=== PATIENT | male | born 1980 | race Caucasian/White ===

== ENCOUNTER 2023-01-03 15:18 | Inpatient (IN) | payer SELFPAY ==
[~2023-01-03] VITALS: Ht 162 cm; Wt 100.1 kg
--- NOTE | 2023-01-03 15:34 | ED Lower Extremity ---
General Chief Complaint: Lower Extremity Stated Complaint: HBP | BILAT FEET SWELLING Source: patient Exam Limitations: no limitations History of Present Illness Date Seen by Provider: January 03, 2023 Time Seen by Provider: 15:34 Initial Comments Patient is a 42-year-old male who presents to the emergency room with a chief complaint of bilateral lower extremity swelling from the hips to the toes as well as significant sharp foot pain. Patient states this pain started approximately 30 days ago. He also complains of numbness or decreased sensation from his waist line to his lower abdomen. He states these are new concerns over the last month. He denies any loss of bowel or bladder function. No back pain. No abdominal pain. No nausea. No chest pain, pressure, tightness or squeezing. No exertional dyspnea. He denies black or bloody stool, denies dysuria. He is on 2 medications for blood pressure and states that he is compliant with these. He does smoke. No daily alcohol. He states he normally has a blood pressure around 140 systolic. He states his blood pressure went up suddenly today and as noted on triage his systolic is 225. Onset: other (1 month) Severity: moderate Pain/Injury Location: bilateral hip, bilateral leg, bilateral knee, bilateral thigh, bilateral foot Modifying Factors: Worse With Movement Allergies and Home Medications Allergies Coded Allergies: No Known Drug Allergies (Unverified , 01/03/23) Patient Home Medication List Home Medication List Reviewed: Yes Review of Systems Constitutional: see HPI EENTM: no symptoms reported Respiratory: no symptoms reported Cardiovascular: no symptoms reported Gastrointestinal: other (Numbness to anterior abdominal wall at approximately the waistline) Genitourinary: no symptoms reported Musculoskeletal: other (Bilateral lower extremity edema) Psychiatric/Neurological: Numbness All Other Systems Reviewed Negative Unless Noted: Yes Physical Exam Vital Signs Vital Signs - First Documented 01/03/23 15:32 Temp 36.9 Pulse 131 Resp 22 B/P (MAP) 224/145 (171) Pulse Ox 97 O2 Delivery Room Air Capillary Refill : Height, Weight, BMI Height: '" Weight: lbs. oz. kg; BMI Method: General Appearance: WD/WN, no apparent distress, obese HEENT: PERRL/EOMI Progress/Results/Core Measures Results/Orders Lab Results Laboratory Tests Test 01/03/23 15:50 01/03/23 16:32 Range/Units White Blood Count 10.3 4.3-11.0 10^3/uL Red Blood Count 4.06 L 4.30-5.52 10^6/uL Hemoglobin 12.9 L 13.3-17.7 g/dL Hematocrit 39 L 40-54 % Mean Corpuscular Volume 97 80-99 fL Mean Corpuscular Hemoglobin 32 25-34 pg Mean Corpuscular Hemoglobin Concent 33 32-36 g/dL Red Cell Distribution Width 14.3 10.0-14.5 % Platelet Count 364 130-400 10^3/uL Mean Platelet Volume 8.9 L 9.0-12.2 fL Immature Granulocyte % (Auto) 0 % Neutrophils (%) (Auto) 73 42-75 % Lymphocytes (%) (Auto) 18 12-44 % Monocytes (%) (Auto) 6 0-12 % Eosinophils (%) (Auto) 2 0-10 % Basophils (%) (Auto) 1 0-10 % Neutrophils # (Auto) 7.5 1.8-7.8 X 10^3 Lymphocytes # (Auto) 1.8 1.0-4.0 X 10^3 Monocytes # (Auto) 0.6 0.0-1.0 X 10^3 Eosinophils # (Auto) 0.2 0.0-0.3 10^3/uL Basophils # (Auto) 0.1 0.0-0.1 10^3/uL Immature Granulocyte # (Auto) 0.0 0.0-0.1 10^3/uL Prothrombin Time 12.9 12.2-14.7 SEC INR Comment 1.0 0.8-1.4 Activated Partial Thromboplast Time 27 24-35 SEC Sodium Level 143 135-145 MMOL/L Potassium Level 3.9 3.6-5.0 MMOL/L Chloride Level 106 98-107 MMOL/L Carbon Dioxide Level 18 L 21-32 MMOL/L Anion Gap 19 H 5-14 MMOL/L Blood Urea Nitrogen 7 7-18 MG/DL Creatinine 0.82 0.60-1.30 MG/DL Estimat Glomerular Filtration Rate 112 BUN/Creatinine Ratio 9 Glucose Level 136 H 70-105 MG/DL Calcium Level 9.4 8.5-10.1 MG/DL Corrected Calcium 9.1 8.5-10.1 MG/DL Magnesium Level 1.6 1.6-2.4 MG/DL Total Bilirubin 0.5 0.1-1.0 MG/DL Aspartate Amino Transf (AST/SGOT) 181 H 5-34 U/L Alanine Aminotransferase (ALT/SGPT) 137 H 0-55 U/L Alkaline Phosphatase 87 40-136 U/L Myoglobin 20.3 10.0-92.0 NG/ML Troponin I < 0.028 <0.028 NG/ML Total Protein 8.1 6.4-8.2 GM/DL Albumin 4.4 3.2-4.5 GM/DL My Orders Orders - ESTRELLA SÁNCHEZ MD Cbc With Automated Diff (01/03/23 15:47) Magnesium (01/03/23 15:47) Chest 1 View, Ap/Pa Only (01/03/23 15:47) Ekg Tracing (01/03/23 15:47) Comprehensive Metabolic Panel (01/03/23 15:47) Myoglobin Serum (01/03/23 15:47) Protime With Inr (01/03/23 15:47) Partial Thromboplastin Time (01/03/23 15:47) O2 (01/03/23 15:47) Monitor-Rhythm Ecg Trace Only (01/03/23 15:47) Lipid Panel (01/04/23 06:00) Ed Iv/Invasive Line Start (01/03/23 15:47) Troponin I [place] (01/03/23 15:47) Labetalol Injection (Normodyne Injection (01/03/23 16:00) Hydroxyzine Cap/Tab (Vistaril) (01/03/23 16:00) Labetalol Injection (Normodyne Injection (01/03/23 16:30) Ct Abdomen/Pelvis W (01/03/23 16:34) Ns Iv 1000 Ml (Sodium Chloride 0.9%) (01/03/23 16:34) Iohexol Injection (Omnipaque 350 Mg/Ml 1 (01/03/23 16:45) Ns (Ivpb) (Sodium Chloride 0.9% Ivpb Bag (01/03/23 16:45) Thyroid Stimulating Hormone (01/03/23 17:37) Bnp [place] (01/03/23 17:37) Hemoglobin A1c (01/03/23 17:37) Urinalysis (01/03/23 17:37) Drug Screen Stat (Urine) (01/03/23 17:37) Furosemide Injection (Lasix Injection) (01/03/23 17:45) Metoprolol Succinate (Xl) Tab (Toprol Xl (01/03/23 18:00) Ns (Ivpb) (Sodium C... W/Nicardipine Iv (01/03/23 18:00) Medications Given in ED Current Medications Medications Dose Ordered Sig/Ronnell Route Start Time Stop Time Status Last Admin Dose Admin Hydroxyzine Pamoate 25 mg ONCE ONCE PO 01/03/23 16:00 01/03/23 16:01 DC 01/03/23 15:59 25 MG Iohexol 100 ml ONCE ONCE IV 01/03/23 16:45 01/03/23 16:46 DC 01/03/23 17:18 80 ML Labetalol HCl 20 mg ONCE ONCE IV 01/03/23 16:00 01/03/23 16:01 DC 01/03/23 16:00 20 MG Labetalol HCl 20 mg ONCE ONCE IV 01/03/23 16:30 01/03/23 16:35 DC 01/03/23 16:45 20 MG Sodium Chloride 100 ml ONCE ONCE IV 01/03/23 16:45 01/03/23 16:46 DC 01/03/23 17:19 80 ML Vital Signs/I&O 01/03/23 15:32 Temp 36.9 Pulse 131 Resp 22 B/P (MAP) 224/145 (171) Pulse Ox 97 O2 Delivery Room Air Progress Progress Note : Time: 17:50 Progress Note Discussed with eICU Initial ECG Impression Date: January 03, 2023 Initial ECG Impression Time: 16:18 Initial ECG Rate: 103 Initial ECG Rhythm: S.Tach Initial ECG Intervals: Normal Initial ECG Impression: Normal Diagnostic Imaging Diagonstic Imaging: Xray Comments [facility], [place] NAME: NIKO ROBERT [facility] REC#: [id number] PT STATUS: REG ER : 1980 PHYSICIAN: ESTRELLA SÁNCHEZ MD ADMIT DATE: 01/03/23/ER Draft Date of Exam:01/03/23 CHEST 1 VIEW, AP/PA ONLY INDICATION: Chest pain. COMPARISON: None. FINDINGS: Single frontal view of the chest demonstrates normal heart size and pulmonary vascularity. The lungs are well aerated and clear. No large pleural effusion or pneumothorax is seen. The visualized osseous structures show no acute abnormalities. IMPRESSION: No acute cardiopulmonary process. Dictated on workstation # [id number] Dict: 01/03/23 1615 Trans: 01/03/23 1617 [id number] Interpreted by: LASHAUN DORMAN MD Electronically signed by: Diagonstic Imaging: CT Comments [facility], [place] NAME: NIKO ROBERT [facility] REC#: [id number] PT STATUS: REG ER : 1980 PHYSICIAN: ESTRELLA SÁNCHEZ MD ADMIT DATE: 01/03/23/ER Signed Date of Exam:01/03/23 CT ABDOMEN/PELVIS W PROCEDURE: CT abdomen and pelvis with contrast. TECHNIQUE: Multiple contiguous axial images were obtained through the abdomen and pelvis after administration of intravenous contrast. Auto Exposure Controls were utilized during the CT exam to meet ALARA standards for radiation dose reduction. All CT scans use one or more of the following dose optimizing techniques: automated exposure control, MA and/or KvP adjustment based on patient size and exam type or iterative reconstruction. INDICATION: Low abdominal pain. Leg swelling. FINDINGS: The lung bases demonstrate no findings of pneumonia or edema. There is no pleural or pericardial effusion. There is hepatomegaly with mild hepatic steatosis. There is no focal intrahepatic abnormality. The hepatic and portal veins are patent. Gallbladder is nondistended. There are no radiodense stones or findings of biliary dilatation. The pancreas appears normal. The spleen is unremarkable. There is no adrenal mass. The kidneys enhance normally without findings of urolithiasis or obstruction. There is no abnormal perinephric fat stranding. There are no findings of urolithiasis. There is no abnormal small or large bowel dilation to suggest bowel obstruction. The appendix is normal. There is moderate stool within the colon. There are few diverticula but no findings of diverticulitis. The bladder is nondistended. There is no free fluid. There is no free air. There is no adenopathy. There is no abscess. The aorta is normal in caliber. There is no acute osseous abnormality. IMPRESSION: 1. No CT findings of an acute inflammatory or obstructive process in the abdomen or pelvis. 2. Hepatomegaly and mild hepatic steatosis 3. Diverticulosis without diverticulitis. There is no bowel obstruction or appendicitis. 4. No free fluid. Dictated by: Dictated on workstation # [id number] Dict: 01/03/234 Trans: 01/03/231739 [facility] [id number] Interpreted by: PARESH JACKMAN MD Electronically signed by: PARESH JACKMAN MD 01/03/231739 Departure Communication (Admissions) Time/Spoke to Admitting Phy: 17:[address] Jimenez hospitalist Time/Spoke to Consulting Phy: 17:[address] Pride cardiology Impression Primary Impression: Hypertensive urgency Disposition: ADMITTED INPATIENT Condition: Critical Admissions Decision to Admit Reason: Admit from ER (General) Decision to Admit/Date: January 03, 2023 Time/Decision to Admit Time: 17:50 Departure-Patient Inst. Referrals: JOSE CRUZ ELIAS MD (PCP/Family) Primary Care Physician ESTRELLA SÁNCHEZ MD January 03, 2023 15:34
[2023-01-03] MEDS ORDERED: hydrOXYzine (VISTARIL/ATARAX) 25 MG capsule/tablet PO ONE (16:00)
[2023-01-03] MEDS ORDERED: LABETALOL HCL 20 MG/4 ML VIAL IV ONE ×2 (16:00→16:30)
[2023-01-03 16:03] LABS: BASOPHILS # (AUTO) 0.1 10^3/uL (0.0-0.1); BASOPHILS % (AUTO) 1 % (0-10); EOSINOPHILS # (AUTO) 0.2 10^3/uL (0.0-0.3); EOSINOPHILS % (AUTO) 2 % (0-10); HEMATOCRIT 39 % (40-54); HEMOGLOBIN 12.9 g/dL (13.3-17.7); LYMPHOCYTES # (AUTO) 1.8 X 10^3 (1.0-4.0); LYMPHOCYTES % (AUTO) 18 % (12-44); MEAN CORPUSCULAR HEMOGLOBIN 32 pg (25-34); MEAN CORPUSCULAR HGB CONC 33 g/dL (32-36); MEAN CORPUSCULAR VOLUME 97 fL (80-99); MEAN PLATELET VOLUME 8.9 fL (9.0-12.2); MONOCYTES # (AUTO) 0.6 X 10^3 (0.0-1.0); MONOCYTES % (AUTO) 6 % (0-12); NEUTROPHILS # (AUTO) 7.5 X 10^3 (1.8-7.8); NEUTROPHILS % (AUTO) 73 % (42-75); PLATELET COUNT 364 10^3/uL (130-400); WHITE BLOOD COUNT 10.3 10^3/uL (4.3-11.0)
[2023-01-03 16:11] LABS: ALBUMIN 4.4 GM/DL (3.2-4.5); POTASSIUM 3.9 MMOL/L (3.6-5.0)
[2023-01-03 16:12] LABS: CALCIUM 9.4 MG/DL (8.5-10.1); PROTHROMBIN TIME PATIENT 12.9 SEC (12.2-14.7)
[2023-01-03 16:13] LABS: TOTAL PROTEIN 8.1 GM/DL (6.4-8.2)
[2023-01-03 16:15] LABS: BILIRUBIN,TOTAL 0.5 MG/DL (0.1-1.0)
[2023-01-03 16:17] LABS: CREATININE SERUM 0.82 MG/DL (0.60-1.30)
--- NOTE | 2023-01-03 16:17 | Diagnostic Imaging Report ---
INDICATION: Chest pain. COMPARISON: None. FINDINGS: Single frontal view of the chest demonstrates normal heart size and pulmonary vascularity. The lungs are well aerated and clear. No large pleural effusion or pneumothorax is seen. The visualized osseous structures show no acute abnormalities. IMPRESSION: No acute cardiopulmonary process. Dictated by: Dictated on workstation # [id number]
[2023-01-03 16:20] LABS: MAGNESIUM 1.6 MG/DL (1.6-2.4)
[2023-01-03] MEDS ORDERED: NS IV 1000 ML 1,000 ML IV STA (16:34)
[2023-01-03] MEDS ORDERED: NS 100 ML (IVPB) BAG IV ONE (16:45)
[2023-01-03] MEDS ORDERED: IOHEXOL 350 MG/ML 100 ML (OMNIPAQUE 350) VIAL IV ONE (16:45)
--- NOTE | 2023-01-03 17:32 | Diagnostic Imaging Report ---
PROCEDURE: CT abdomen and pelvis with contrast. TECHNIQUE: Multiple contiguous axial images were obtained through the abdomen and pelvis after administration of intravenous contrast. Auto Exposure Controls were utilized during the CT exam to meet ALARA standards for radiation dose reduction. All CT scans use one or more of the following dose optimizing techniques: automated exposure control, MA and/or KvP adjustment based on patient size and exam type or iterative reconstruction. INDICATION: Low abdominal pain. Leg swelling. FINDINGS: The lung bases demonstrate no findings of pneumonia or edema. There is no pleural or pericardial effusion. There is hepatomegaly with mild hepatic steatosis. There is no focal intrahepatic abnormality. The hepatic and portal veins are patent. Gallbladder is nondistended. There are no radiodense stones or findings of biliary dilatation. The pancreas appears normal. The spleen is unremarkable. There is no adrenal mass. The kidneys enhance normally without findings of urolithiasis or obstruction. There is no abnormal perinephric fat stranding. There are no findings of urolithiasis. There is no abnormal small or large bowel dilation to suggest bowel obstruction. The appendix is normal. There is moderate stool within the colon. There are few diverticula but no findings of diverticulitis. The bladder is nondistended. There is no free fluid. There is no free air. There is no adenopathy. There is no abscess. The aorta is normal in caliber. There is no acute osseous abnormality. IMPRESSION: 1. No CT findings of an acute inflammatory or obstructive process in the abdomen or pelvis. 2. Hepatomegaly and mild hepatic steatosis 3. Diverticulosis without diverticulitis. There is no bowel obstruction or appendicitis. 4. No free fluid. Dictated by: Dictated on workstation # [id number]
[2023-01-03 17:43] LABS: BILIRUBIN,URINE NEGATIVE (NEGATIVE); CLARITY,URINE SL CLOUDY; COLOR,URINE YELLOW; GLUCOSE, URINE (UA) NEGATIVE (NEGATIVE); KETONES,URINE 1+ (NEGATIVE); LEUKOCYTE ESTERASE ,URINE NEGATIVE (NEGATIVE); NITRITE,URINE NEGATIVE (NEGATIVE); PH,URINE 5.5 (5-9); PROTEIN,URINE TRACE (NEGATIVE)
[2023-01-03] MEDS ORDERED: FUROSEMIDE 40 MG/4 ML INJ (LASIX) IVP ONE (17:45)
[2023-01-03 17:57] LABS: AMPHETAMINE SCREEN, URINE NEGATIVE (NEGATIVE); BARBITURATE SCREEN URINE NEGATIVE (NEGATIVE); BENZODIAZEPINES SCREEN URINE NEGATIVE (NEGATIVE); CANNABINOID SCREEN, URINE NEGATIVE (NEGATIVE); COCAINE SCREEN URINE NEGATIVE (NEGATIVE); METHADONE STAT NEGATIVE (NEGATIVE); OPIATE SCREEN URINE NEGATIVE (NEGATIVE); OXYCODONE STAT NEGATIVE (NEGATIVE); PROPOXYPHENE STAT NEGATIVE (NEGATIVE); TRICYCLIC ANTIDEPRESSANTS SCRE NEGATIVE (NEGATIVE)
[2023-01-03] MEDS ORDERED: niCARdipine IV 50 MG in NS (IVPB) 230 ML IV SCH (18:00)
[2023-01-03] MEDS ORDERED: meTOprolol SUCCINATE 100 MG (TOPROL XL) TAB PO ONE (18:00)
[2023-01-03 18:17] LABS: AMORPHOUS SEDIMENT,UR FEW AMOR URATES /LPF; BACTERIA,URINE TRACE /HPF
[2023-01-03] MEDS ORDERED: diphenhydrAMINE 50 MG/ML INJ (BENADRYL) IVP PRN (19:30)
[2023-01-03] MEDS ORDERED: polyethylene glycoL POWDER 17 GM (MIRALAX) PACK PO PRN (19:30)
[2023-01-03] MEDS ORDERED: ONDANSETRON 4 MG/2 ML (SDV) Z0FRAN IV PRN (19:30)
[2023-01-03] MEDS ORDERED: ONDANSETRON 4 MG (ZOFRAN) ORAL DISSOLVE TAB PO PRN (19:30)
[2023-01-03] MEDS ORDERED: CALCIUM CARBONATE 500 MG (TUMS) TAB.CHEW PO PRN (19:30)
[2023-01-03] MEDS ORDERED: MILK OF MAGNESIA 400 MG/5 ML 30 ML UDC PO PRN (19:30)
[2023-01-03] MEDS ORDERED: diphenhydrAMINE 25 MG TAB (BENADRYL) PO PRN (19:30)
[2023-01-03] MEDS ORDERED: MELATONIN 3 MG TABLET PO PRN (19:30)
[2023-01-03] MEDS ORDERED: ANTACID SUSP 30 ML UDC (MYLANTA) PO PRN (19:30)
[2023-01-03] MEDS ORDERED: BISACODYL 10 MG SUPP (DULCOLAX) PR PRN (19:30)
[2023-01-03] MEDS ORDERED: ACETAMINOPHEN 325 MG TABLET PO PRN (19:30)
[2023-01-03] MEDS ORDERED: LACTULOSE SYRUP 10GM/15ML (ENULOSE) 30ML UDC PO PRN (19:30)
[2023-01-03] MEDS ORDERED: ENOXAPARIN 40 MG/0.4 ML (LOVENOX) SYR SC SCH (19:30)
[2023-01-03] MEDS ORDERED: GABAPENTIN 100 MG (NEURONTIN) CAP ONE (20:19)
[2023-01-03] MEDS: GABAPENTIN 100 MG (NEURONTIN) CAP PO SCH (20:21)
[2023-01-03] MEDS: SENNOSIDES 8.6 MG (SENOKOT) TAB PO SCH (20:22)
[2023-01-03] MEDS: DOCUSATE SODIUM 100 MG (COLACE) CAP PO SCH (20:22)
[2023-01-03] MEDS: niCARdipine IV 50 MG in NS (IVPB) 230 ML IV SCH (20:22)
--- NOTE | 2023-01-03 20:37 | Tele-ICU Progress Note ---
Progress Note 42M with HTN, baseline BP around 140 admitted with hypertensive urgency. He states that he used to be vigilant about checking BP, but has not been checking it recently. Has not been checked in the last few days. Initially about 30 days ago developed numbness from the midbelly down, which he attributed to a muscle strain from running. It was bilateral in nature. Next around 2 weeks ago legs became involved. They were not painful or numb, but had a pressure like/swollen sensation, although did not appear swollen. 4-5 days ago feet became swollen and painful. Had pins and needles across the tops and the tips of the toes. Affecting bilateral legs. He reports the foot swelling is significantly improved since coming to ED and obtaining BP control. Pain was worse while in ED, which he attributes to the bed. Nearly resolved now that he is in the ICU bed. A/P: - hypertensive urgency: Unclear how high BP has been recently. Plan for goal SBP 160-180. On arrival to ICU he was slightly overcorrected at 136/110. Cardene gtt decreased, now 166/128. Hold home norvasc, which can cause swelling. Has been started on scheduled metoprolol XL. - neuropathy: Does not sound neuropathic in nature. The tops of the feet and toes are innervated by L5, lower abd by T11 - L1. Would have to have bilateral compression with something like a compression fracture or disc collapse. CT reviewed, no evidence of compression or pathalogic fractures, good spacing between vertebrae. Will give trial of gabapentin for symptom control. Re- evaluate with BP control. - transaminitis: with hepatic steatosis noted on imaging. No associated coagulopathy. Avoid hepatotoxins. Repeat in AM. Possibly secondary to hypertensive urgency/emergency, however hepatic steatosis makes it more likely to be chronic changes. Possibly secondary to EtOH with AST 181>ALT 137. Patient states that he was a heavy drinker, 2-3 mixed drinks per night. Stopped drinking 7-8 months ago. Has had a few drinks over the last couple of nights. Some education provided. If not improving prior to discharge, should have outpatient follow up. - tobacco: smoking 1/2 ppd currently. Declines patch at this time. Patient assessed via real time audiovisual communication system. CCT 36 min Focused Exam Height, Weight, BMI Height: '" Weight: lbs. oz. kg; 38.63 BMI Method: TIFFANY FUNK MD January 03, 2023 20:37
--- NOTE | 2023-01-03 21:13 | Consultation-Cardiology ---
HPI-Cardiology Cardiology Consultation: Date of Consultation 01/03/23 Time Seen by a Provider: 20:45 Date of Admission Attending Physician Roel Childs MD Admitting Physician Admitting Physician: Meagan Jimenez MD Attending Physician: Meagan Jimenez MD Consulting Physician CHARY ETIENNE MD, MA, FACP, FACC, [facility], CCDS Physician requesting consult: Dr Jimenez HPI: Chief Complaint: Reason for Card consult: Severe hypertension 42 yo man with a h/o hypertension who had been experiencing increasing swelling of both feet for several days to the point that he was experiencing discomfort from swelling who went to Urgent Care but was sent to the ER at this hosp from where he was admitted to Dr Jimenez for treatment of severe hypertension. He denies cp or palp or syncope. He was treated with iv furosemide in the ER today and notes marked improvement of swelling since admission. No fever or chills. Notes some gen malaise Review of Systems-Cardiology Review of Systems Constitutional: As described under HPI Eyes: No vision change Ears/Nose/Throat: No ear discharge, No nasal drainage, No recent hearing loss Cardiovascular: As described under HPI Gastrointestinal: No diarrhea, No nausea, No vomiting Genitourinary: No dysuria, No hematuria, No urine frequency changes Musculoskeletal: No back pain, No joint pain Skin: No rash, No ulcerations Psychiatric/Neurological: No seizure, No focal weakness, No syncope Hematologic: No bleeding abnormalities All Other Systems Reviewed Negative Unless Noted: Yes IOL-Nvkctb-Cankiv Hx Patient Social History Smoking Status: Current Everyday Smoker Have you traveled recently?: No Alcohol Use?: No Pt feels they are or have been: No Tobacco type used: Cigarettes Past Medical History PMH As described under Assessment. Family Medical History Family Medical History: He does not report fam h/o early CAD or SCD Allergies and Home Medications Allergies Coded Allergies: No Known Drug Allergies (Unverified , 01/03/23) Patient Home Medication List Home Medication List Reviewed: Yes Physical Exam-Cardiology Physical Exam Vital Signs/I&O 01/03/23 01/03/23 01/03/23 01/03/23 15:32 18:33 19:11 19:30 Temp 36.9 Pulse 131 Resp 22 B/P (MAP) 224/145 (171) 177/153 169/116 Pulse Ox 97 99 O2 Delivery Room Air Room Air 501/03/23 01/03/23 01/03/23 19:38 19:45 20:00 20:22 Temp 37.4 Pulse 107 Resp 20 B/P (MAP) 170/116 (134) 136/103 (114) 151/117 (128) 166/128 Pulse Ox 99 O2 Delivery Room Air Capillary Refill : Less Than 3 Seconds Constitutional: AAO x 3, well-developed, well-nourished HEENT: hearing is well preserved; No ulceration Neck: carotid pulses are 2 + bilaterally, with good upstrokes Respiratory: No accessory muscle use; chest expansion is symmetric, chest is bilaterally symmetric, other (good, bilateral air entry) Cardiovascular: regular rate-rhythm, S1 and S2, systolic murmur (soft SHERRI at card base) Gastrointestinal: No tender; soft; No guarding, No rebound; audible bowel sounds Extremities: No clubbing, No cyanosis, No significant edema Neurologic/Psychiatric: oriented x 3, other (moves all limbs equally) Skin: No rash on exposed areas, No ulcerations on exposed areas Data Review Labs Laboratory Tests 01/03/23 15:50: White Blood Count 10.3, Red Blood Count 4.06L, Hemoglobin 12.9L, Hematocrit 39L, Mean Corpuscular Volume 97, Mean Corpuscular Hemoglobin 32, Mean Corpuscular Hemoglobin Concent 33, Red Cell Distribution Width 14.3, Platelet Count 364, Mean Platelet Volume 8.9L, Immature Granulocyte % (Auto) 0, Neutrophils (%) ( Auto) 73, Lymphocytes (%) (Auto) 18, Monocytes (%) (Auto) 6, Eosinophils (%) (Auto) 2, Basophils (%) (Auto) 1, Neutrophils # (Auto) 7.5, Lymphocytes # (Auto) 1.8, Monocytes # (Auto) 0.6, Eosinophils # (Auto) 0.2, Basophils # (Auto) 0.1, Immature Granulocyte # (Auto) 0.0, Prothrombin Time 12.9, INR Comment 1.0, Activated Partial Thromboplast Time 27, Sodium Level 143, Potassium Level 3.9, Chloride Level 106, Carbon Dioxide Level 18L, Anion Gap 19H, Blood Urea Nitrogen 7, Creatinine 0.82, Estimat Glomerular Filtration Rate 112, BUN/Creatinine Ratio 9, Glucose Level 136H, Calcium Level 9.4, Corrected Calcium 9.1, Magnesium Level 1.6, Total Bilirubin 0.5, Aspartate Amino Transf (AST/SGOT) 181H, Alanine Aminotransferase (ALT/SGPT) 137H, Alkaline Phosphatase 87, Myoglobin 20.3, Troponin I < 0.028, B-Type Natriuretic Peptide < 10.0, Total Protein 8.1, Albumin 4.4, Thyroid Stimulating Hormone (TSH) 3.38 01/03/23 16:32: Urine Color YELLOW, Urine Clarity SL CLOUDY, Urine pH 5.5, Urine Specific [place] >=1.030, Urine Protein TRACEH, Urine Glucose (UA) NEGATIVE, Urine Ketones 1+H, Urine Nitrite NEGATIVE, Urine Bilirubin NEGATIVE, Urine Urobilinogen 0.2, Urine Leukocyte Esterase NEGATIVE, Urine RBC (Auto) NEGATIVE, Urine RBC NONE, Urine WBC NONE, Urine Squamous Epithelial Cells 2-5, Urine Crystals PRESENTH, Urine Amorphous Sediment FEW WILLIAM URATESH, Urine Bacteria TRACE, Urine Casts PRESENT, Urine Hyaline Casts 2-5H, Urine Mucus MODERATEH, Urine Culture Indicated NO, Urine Opiates Screen NEGATIVE, Urine Oxycodone Screen NEGATIVE, Urine Methadone Screen NEGATIVE, Urine Propoxyphene Screen NEGATIVE, Urine Barbiturates Screen NEGATIVE, Ur Tricyclic Antidepressants Screen NEGATIVE, Urine Phencyclidine Screen NEGATIVE, Urine Amphetamines Screen NEGATIVE, Urine Methamphetamines Screen NEGATIVE, Urine Benzodiazepines Screen NEGATIVE, Urine Cocaine Screen NEGATIVE, Urine Cannabinoids Screen NEGATIVE 01/03/23 19:59: Laboratory Tests 01/03/23 15:50 A/P-Cardiology Assessment/Admission Diagnosis Severe hypertension Bilat ankle swelling Cigarette smoker Discussion and Recomendations * iv Cardene tonight * Add Toprol XL 200 mg daily * Add triam/HCTZ 75/50 daily * Continue previous meds for hypertension * DVT prophylaxis with enoxaparin * Echo * Advised to quit smoking immediately and completely * Further recs based on hosp course CHARY ETIENNE MD [facility] CCDS January 03, 2023 21:13
[2023-01-03] MEDS ORDERED: NS IV 500 ML 500 ML IV PRN (23:15)
[2023-01-04 04:27] LABS: BASOPHILS # (AUTO) 0.1 10^3/uL (0.0-0.1); BASOPHILS % (AUTO) 1 % (0-10); EOSINOPHILS # (AUTO) 0.2 10^3/uL (0.0-0.3); EOSINOPHILS % (AUTO) 1 % (0-10); HEMATOCRIT 36 % (40-54); LYMPHOCYTES # (AUTO) 2.2 10^3/uL (1.0-4.0); LYMPHOCYTES % (AUTO) 21 % (12-44); MEAN CORPUSCULAR HEMOGLOBIN 32 pg (25-34); MEAN CORPUSCULAR HGB CONC 33 g/dL (32-36); MEAN CORPUSCULAR VOLUME 97 fL (80-99); MEAN PLATELET VOLUME 9.5 fL (9.0-12.2); MONOCYTES # (AUTO) 0.7 10^3/uL (0.0-1.0); MONOCYTES % (AUTO) 7 % (0-12); NEUTROPHILS # (AUTO) 7.4 10^3/uL (1.8-7.8); NEUTROPHILS % (AUTO) 70 % (42-75); PLATELET COUNT 366 10^3/uL (130-400); WHITE BLOOD COUNT 10.6 10^3/uL (4.3-11.0)
[2023-01-04 04:41] LABS: POTASSIUM 3.4 MMOL/L (3.6-5.0)
[2023-01-04 04:42] LABS: ALBUMIN 4.2 GM/DL (3.2-4.5)
[2023-01-04 04:43] LABS: CALCIUM 9.1 MG/DL (8.5-10.1)
[2023-01-04 04:44] LABS: TOTAL PROTEIN 7.7 GM/DL (6.4-8.2)
[2023-01-04 04:46] LABS: BILIRUBIN,TOTAL 0.7 MG/DL (0.1-1.0)
[2023-01-04 04:47] LABS: PHOSPHORUS 5.2 MG/DL (2.3-4.7)
[2023-01-04 04:48] LABS: CREATININE SERUM 0.84 MG/DL (0.60-1.30)
[2023-01-04] MEDS: niCARdipine IV 50 MG in NS (IVPB) 230 ML IV SCH (04:50)
[2023-01-04 04:51] LABS: MAGNESIUM 1.6 MG/DL (1.6-2.4)
[2023-01-04] MEDS: MAGNESIUM 1 GM/100 ML IVPB 100 ML IV SCH ×2 (05:13→07:09)
[2023-01-04] MEDS ORDERED: POTASSIUM CL 10MEQ/50ML IVPB 50 ML IV SCH (06:00)
[2023-01-04] MEDS ORDERED: MAGNESIUM 1 GM/100 ML IVPB 100 ML IV SCH (06:00)
[2023-01-04] MEDS ORDERED: KCL 20 MEQ TAB (K-DUR) PO SCH (06:00)
[2023-01-04] MEDS ORDERED: KCL 20 MEQ TAB (K-DUR) PO ONE (08:00)
[2023-01-04] MEDS: GABAPENTIN 100 MG (NEURONTIN) CAP PO SCH (08:35)
[2023-01-04] MEDS: SENNOSIDES 8.6 MG (SENOKOT) TAB PO SCH (08:37)
[2023-01-04] MEDS: DOCUSATE SODIUM 100 MG (COLACE) CAP PO SCH (08:37)
[2023-01-04] MEDS ORDERED: meTOprolol SUCCINATE 100 MG (TOPROL XL) TAB PO SCH (09:00)
[2023-01-04] MEDS ORDERED: TRIAMTERENE/HCTZ 75-50 (MAXZIDE,DYAZIDE) TABLET PO SCH (09:00)
--- NOTE | 2023-01-04 09:37 | Tele-ICU Progress Note ---
Subjective Date Seen by a Provider: January 04, 2023 Time Seen by a Provider: 09:37 Subjective/Events-last exam (Tele-ICU Physician , Progress Note ) Service provided via interactive audio and video telecommunications E-CARE system to a patient admitted to ICU bed in [facility]. Patient is seen today due to persistent need of ICU care Available chart/ vitals / labs / Images reviewed Video assessment done using teleICU camera, rest of exam as per RN Discussed with RN Events overnight : Afebrile hemodynamically stable Respiratory - ra I/O = Drips: Pressors- no Hospital course: (01/03) 42yM admitted HTN Urgency (pt c/o ble swelling & numbness at waistline to lower abd over last 30 days) , nicardipine gtt sarted in ER - OFF 01/04- nicardipine gtt - OFF A/P HTN urgency/ emergency ( with acute end-organ damage - Hypertensive encephalopathy - on presentation BP 225/145 ( MAP 170 - nicardipine gtt sarted in ER - OFF -cards consulted , po meds sytarted FELISHA vs CKD- RESOLVED - ? 2/2 uncontrolled HTN - CT abdomen and pelvis with contrast- NO urolithiasis or obstruction. - cont hydration ( after contrast ) - received lasix in ER - UA reviewed Elev transaminases - hepatomegaly with mild hepatic steatosis on CT - as per patient , " some ETON intake lately " with pain issues LOC - no abd venous obstruction on CT - US LE pending Lines : perip , (Central Line Necessity Reviewed) Vaz: void OG: Nutrition: po Analgesia: Anxiety/ delirium VTE Prophylaxis: jenna 40 Stress Ulcer Prophylaxis: na Plans in collaboration with bedside consultants and IM MDs. Discussed with RN to reach out if any questions or concerns A total of 10 minutes of critical care time was devoted to this patient today, required to treat and/or prevent further deterioration of critical care condition ( as above ) . Sepsis Event Evaluation Height, Weight, BMI Height: '" Weight: lbs. oz. kg; 38.14 BMI Method: Exam Exam Patient acknowledged, consented, and participated in this virtual visit which was conducted using real time audio/video Vital Signs Date Time Temp Pulse Resp B/P (MAP) Pulse Ox O2 Delivery O2 Flow Rate FiO2 01/04/23 09:00 84 126/90 (102) 96 Room Air 01/04/23 08:00 36.2 01/04/23 08:00 99 Room Air 01/04/23 08:00 82 130/94 (106) 93 Room Air 01/04/23 07:00 87 01/04/23 07:00 87 138/96 (110) 97 Room Air 01/04/23 06:00 84 126/83 (97) 95 Room Air 01/04/23 05:00 86 144/103 (117) 94 Room Air 01/04/23 04:00 77 117/88 (98) 97 Room Air 01/04/23 03:12 36.6 99 Room Air 01/04/23 03:10 99 Room Air 01/04/23 03:00 79 136/103 (114) 97 Room Air 01/04/23 02:00 84 140/97 (111) 94 Room Air 01/04/23 01:30 118/78 01/04/23 01:00 89 133/92 (106) 93 Room Air 01/04/23 01:00 85 01/04/23 00:00 94 145/96 (112) 95 Room Air 01/03/23 23:17 36.9 Room Air 01/03/23 23:10 99 Room Air 01/03/23 23:00 105 150/105 (120) 97 Room Air 01/03/23 22:07 177/119 01/03/23 22:00 107 170/116 (134) 99 Room Air 01/03/23 21:06 154/106 01/03/23 20:45 109 140/125 (130) 97 Room Air 01/03/23 20:22 166/128 01/03/23 20:15 112 166/128 (141) 94 Room Air 01/03/23 20:00 102 151/117 (128) 96 Room Air 01/03/23 20:00 151/117 (128) 01/03/23 19:45 136/103 (114) 01/03/23 19:45 112 136/103 (114) 97 Room Air 01/03/23 19:40 106 01/03/23 19:38 37.4 107 20 170/116 (134) 99 Room Air 01/03/23 19:30 99 Room Air 01/03/23 19:30 112 170/116 (134) 97 Room Air 01/03/23 19:11 169/116 01/03/23 18:33 177/153 5/10/23 15:32 36.9 131 22 224/145 (171) 97 Room Air I & O 01/04/23 07:00 Intake Total 1150 ml Output Total 3675 ml Balance -2525 ml Height & Weight Height: '" Weight: lbs. oz. kg; 38.14 BMI Method: General Appearance: Other Capillary Refill: Less Than 3 Seconds Results Lab Laboratory Tests 01/03/23 15:50 01/04/23 04:19 Assessment/Plan Assessment/Plan 1 DARRICK QUILES MD January 04, 2023 09:37
--- NOTE | 2023-01-04 09:46 | Progress Note - Cardiology ---
Cardiology SOAP Progress Note Subjective: Sitting up in bed States he feels good this morning No c/o CP, SOB or palpitations No c/o LE swelling this morning Objective: I&O/Vital Signs 01/03/23 01/03/23 01/03/23 01/03/23 22:00 22:07 23:00 23:10 Pulse 107 105 B/P (MAP) 170/116 (134) 177/119 150/105 (120) Pulse Ox 99 97 99 O2 Delivery Room Air Room Air Room Air 01/03/23 01/04/23 01/04/23 01/04/23 23:17 00:00 01:00 01:00 Temp 36.9 Pulse 94 85 89 B/P (MAP) 145/96 (112) 133/92 (106) Pulse Ox 95 93 O2 Delivery Room Air Room Air Room Air 01/04/23 01/04/23 01/04/23 01/04/23 01:30 02:00 03:00 03:10 Pulse 84 79 B/P (MAP) 118/78 140/97 (111) 136/103 (114) Pulse Ox 94 97 99 O2 Delivery Room Air Room Air Room Air 01/04/23 01/04/23 01/04/23 01/04/23 03:12 04:00 05:00 06:00 Temp 36.6 Pulse 77 86 84 B/P (MAP) 117/88 (98) 144/103 (117) 126/83 (97) Pulse Ox 99 97 94 95 O2 Delivery Room Air Room Air Room Air Room Air 01/04/23 01/04/23 01/04/23 01/04/23 07:00 07:00 08:00 08:00 Pulse 87 87 82 B/P (MAP) 138/96 (110) 130/94 (106) Pulse Ox 97 93 99 O2 Delivery Room Air Room Air Room Air 01/04/23 01/04/23 08:00 09:00 Temp 36.2 Pulse 84 B/P (MAP) 126/90 (102) Pulse Ox 96 O2 Delivery Room Air 01/04/23 00:00 Intake Total 350 ml Output Total 2325 ml Balance -1975 ml Constitutional: AAO x 3, well-developed, well-nourished Respiratory: No accessory muscle use; chest expansion is symmetric, chest is bilaterally symmetric, other (good, bilateral air entry) Cardiovascular: regular rate-rhythm, S1 and S2, systolic murmur (soft SHERRI at card base) Gastrointestional: No tender; soft; No guarding, No rebound; audible bowel so unds Extremities: No clubbing, No cyanosis, No significant edema Neurologic/Psychiatric: oriented x 3, other (moves all limbs equally) Skin: No rash on exposed areas, No ulcerations on exposed areas Results/Procedures: Labs Laboratory Tests 01/03/23 15:50: White Blood Count 10.3, Red Blood Count 4.06L, Hemoglobin 12.9L, Hematocrit 39L, Mean Corpuscular Volume 97, Mean Corpuscular Hemoglobin 32, Mean Corpuscular Hemoglobin Concent 33, Red Cell Distribution Width 14.3, Platelet Count 364, Mean Platelet Volume 8.9L, Immature Granulocyte % (Auto) 0, Neutrophils (%) (Auto) 73, Lymphocytes (%) (Auto) 18, Monocytes (%) (Auto) 6, Eosinophils (%) (Auto) 2, Basophils (%) (Auto) 1, Neutrophils # (Auto) 7.5, Lymphocytes # (Auto) 1.8, Monocytes # (Auto) 0.6, Eosinophils # (Auto) 0.2, Basophils # (Auto) 0.1, Immature Granulocyte # (Auto) 0.0, Prothrombin Time 12.9, INR Comment 1.0, Activated Partial Thromboplast Time 27, Sodium Level 143, Potassium Level 3.9, Chloride Level 106, Carbon Dioxide Level 18L, Anion Gap 19H, Blood Urea Nitrogen 7, Creatinine 0.82, Estimat Glomerular Filtration Rate 112, BUN/Creatinine Ratio 9, Glucose Level 136H, Calcium Level 9.4, Corrected Calcium 9.1, Magnesium Level 1.6, Total Bilirubin 0.5, Aspartate Amino Transf (AST/SGOT) 181H, Alanine Aminotransferase (ALT/SGPT) 137H, Alkaline Phosphatase 87, Myoglobin 20.3, Troponin I < 0.028, B-Type Natriuretic Peptide < 10.0, Total Protein 8.1, Albumin 4.4, Thyroid Stimulating Hormone (TSH) 3.38 01/03/23 16:32: Urine Color YELLOW, Urine Clarity SL CLOUDY, Urine pH 5.5, Urine Specific [place] >=1.030, Urine Protein TRACEH, Urine Glucose (UA) NEGATIVE, Urine Ketones 1+H, Urine Nitrite NEGATIVE, Urine Bilirubin NEGATIVE, Urine Urobilinogen 0.2, Urine Leukocyte Esterase NEGATIVE, Urine RBC (Auto) NEGATIVE, Urine RBC NONE, Urine WBC NONE, Urine Squamous Epithelial Cells 2-5, Urine Crystals PRESENTH, Urine Amorphous Sediment FEW WILLIAM URATESH, Urine Bacteria TRACE, Urine Casts PRESENT, Urine Hyaline Casts 2-5H, Urine Mucus MODERATEH, Urine Culture Indicated NO, Urine Opiates Screen NEGATIVE, Urine Oxycodone Screen NEGATIVE, Urine Methadone Screen NEGATIVE, Urine Propoxyphene Screen NEGATIVE, Urine Barbiturates Screen NEGATIVE, Ur Tricyclic Antidepressants Screen NEGATIVE, Urine Phencyclidine Screen NEGATIVE, Urine Amphetamines Screen NEGATIVE, Urine Methamphetamines Screen NEGATIVE, Urine Benzodiazepines Screen NEGATIVE, Urine Cocaine Screen NEGATIVE, Urine Cannabinoids Screen NEGATIVE 01/03/23 19:59: 01/04/23 04:19: White Blood Count 10.6, Red Blood Count 3.72L, Hemoglobin 12.0L, Hematocrit 36L, Mean Corpuscular Volume 97, Mean Corpuscular Hemoglobin 32, Mean Corpuscular Hemoglobin Concent 33, Red Cell Distribution Width 14.6H, Platelet Count 366, Mean Platelet Volume 9.5, Immature Granulocyte % (Auto) 0, Neutrophils (%) (Auto) 70, Lymphocytes (%) (Auto) 21, Monocytes (%) (Auto) 7, Eosinophils (%) (Auto) 1, Basophils (%) (Auto) 1, Neutrophils # (Auto) 7.4, Lymphocytes # (Auto) 2.2, Monocytes # (Auto) 0.7, Eosinophils # (Auto) 0.2, Basophils # (Auto) 0.1, Immature Granulocyte # (Auto) 0.0, Sodium Level 141, Potassium Level 3.4L, Ch loride Level 101, Carbon Dioxide Level 23, Anion Gap 17H, Blood Urea Nitrogen 1 0, Creatinine 0.84, Estimat Glomerular Filtration Rate 111, BUN/Creatinine Ratio 12, Glucose Level 108H, Calcium Level 9.1, Corrected Calcium 8.9, Magnesium Level 1.6, Total Bilirubin 0.7, Aspartate Amino Transf (AST/SGOT) 115H, Alanine Aminotransferase (ALT/SGPT) 114H, Alkaline Phosphatase 72, Total Protein 7.7, Albumin 4.2, Phosphorus Level 5.2H, Triglycerides Level 371H, Cholesterol Level 291H, LDL Cholesterol Direct 203H, VLDL Cholesterol 74H, HDL Cholesterol 41 Laboratory Tests 01/03/23 15:50 01/04/23 04:19 A/P: Assessment: Severe hypertension - improved Bilat ankle swelling - improved Cigarette smoker - cessation advised Plan: * IV Cardene has been stopped * Continue Toprol XL 200 mg daily, triam/HCTZ 75/50 daily * Continue previous meds for hypertension * DVT prophylaxis with enoxaparin * Echo today * Advised to quit smoking immediately and completely JOSE ROGERS January 04, 2023 09:46
--- NOTE | 2023-01-04 11:26 | Diagnostic Imaging Report ---
PROCEDURE: US Venous Lower Ext Edilberto. TECHNIQUE: Multiple real-time grayscale images were obtained over the lower extremities in various projections, bilaterally. Additional duplex Doppler and color Doppler images were also obtained. INDICATION: Bilateral lower extremity swelling. There is no evidence of right or left lower extremity DVT. Both lower extremity deep venous systems demonstrate normal compressibility with normal response to augmentation and Valsalva. No fluid collection or mass is detected. IMPRESSION: No evidence of right or left lower extremity DVT. Dictated by: Dictated on workstation # [id number]
[2023-01-04] MEDS ORDERED: LOSA50TA63 PO (12:46)
[2023-01-04] MEDS ORDERED: AMLO-251 PO (12:46)
[2023-01-04] MEDS ORDERED: IBUP-2473 PO (12:46)
[2023-01-04] MEDS ORDERED: OMEP20TA56 PO (12:46)
[2023-01-04] MEDS ORDERED: amLODIPine 10 MG (NORVASC) TAB PO ONE (13:00)
[2023-01-04] MEDS ORDERED: amLODIPine 10 MG (NORVASC) TAB ONE (13:03)
--- NOTE | 2023-01-04 13:46 | History & Physical-Hospitalist ---
[facility] 01/04/23 1346: History of Present Illness HPI/Chief Complaint This is a 42y M with PMH of HTN who presented to the ED 01/03 with b/l extremity swelling and concerns of HTN. For the past month he has been having muscle fatigue and aching in his legs bilaterally with a decreased sensation and feeling of tightness. For the past 6 days he has had swelling in feet bilaterally that became painful, worse with walking. He was unable to get appo intment with PCP so he went to urgent care. At they told him his blood pressure was very elevated, he does not know reading, and he had to go to ER. In ED, BP was 224/145. He reported compliance with Losartan and amlodipine daily. CXR and CT A/P without acute abnormalities, did note hepatomegaly with steatosis. Seen by Dr. Martinez who planned to change HTN medications and obtain echo. Today he reports feeling much improved. He feels swelling in feet resolved, though now feeling burning and pins/needles sensation in tips of toes. Also feels he is getting sensitivity back in his legs. No CP, SOB, nausea/vomiting. Denies ARROYO or recent vision changes. Notes he has been having an alcoholic mixed drink with about 3 oz of liquor nightly for the past week to help with leg pain as he does not like to take medications. Before this he had stopped drinking for 7-8 months at which time he was having 2-3 mixed drinks per night. LE u/s today without evidence of DVT. Source: patient Exam Limitations: no limitations Date Seen 01/04/23 Time Seen by a Provider: 08:10 Attending Physician Roel Elias MD PCP Admitting Physician: Vitaliy Gao MD Attending Physician: Vitaliy Gao MD Referring Physician Date of Admission January 03, 2023 at 19:23 Home Medications & Allergies Home Medications Reviewed patient Home Medication Reconciliation performed by pharmacy medication reconciliations software support technician and/or nursing. Patients Allergies have been reviewed. Allergies Allergies Coded Allergies No Known Drug Allergies (Unverified01/03/23) Past Oeiwqxl-Smlrch-Pyxatu Hx Patient Social History Tobacco Use?: Yes Tobacco type used: Cigarettes Smoking Status: Current Everyday Smoker (0.5 ppd) Use of E-Cig and/or Vaping dev: No Substance use?: No Alcohol Use?: Yes Alcohol type: Hard Liquor Alcohol Frequency: Daily Pt feels they are or have been: No Immunizations Up To Date Tetanus Booster (TDap): More Than 5 Years Hepatitis A: No Hepatitis B: No Current Status Advance Directives: No Communicates: Verbally Primary Language: Gambian Preferred Spoken Language: Gambian Is interpretation needed?: No Implanted or Applied Medical D: None Past Medical History Surgeries: Orthopedic (ACL) Hypertension Family Medical History Hypertension (mother) Review of Systems Constitutional: No dizziness, No fever, No weakness EENTM: No blurred vision, No double vision Respiratory: No dyspnea on exertion, No short of breath Cardiovascular: No chest pain; edema; No palpitations Gastrointestinal: No abdominal pain, No nausea, No vomiting Genitourinary: No dysuria All Other Systems Reviewed Negative Unless Noted: Yes (Negative excepted noted.) Physical Exam Physical Exam Vital Signs Vital Signs - First Documented 01/03/23 15:32 Temp 36.9 Pulse 131 Resp 22 B/P (MAP) 224/145 (171) Pulse Ox 97 O2 Delivery Room Air Capillary Refill : Less Than 3 Seconds Height, Weight, BMI Height: '" Weight: lbs. oz. kg; 38.14 BMI Method: General Appearance: No Apparent Distress, WD/WN HEENT: PERRL/EOMI, Moist Mucous Membranes Neck: Full Range of Motion, Normal Inspection Respiratory: Lungs Clear, Normal Breath Sounds, No Respiratory Distress Cardiovascular: Regular Rate, Rhythm, No JVD Gastrointestinal: Normal Bowel Sounds, Non Tender, Soft Extremity: Normal Inspection, No Pedal Edema Neurologic/Psychiatric: Alert, Oriented x3, No Motor/Sensory Deficits, Normal Mood/Affect Skin: Normal Color, Warm/Dry Results Results/Procedures Labs Laboratory Tests 01/03/23 15:50 01/04/23 04:19 Patient resulted labs reviewed. Assessment/Plan Admission Diagnosis Admission Status: Observation Assessment and Plan Hypertensive urgency Hx HTN Possible heart failure Continue PO meds Cardiology following Echo today B/l leg pain/swelling Neuropathic pain b/l feet Improved with lasix and pain control LE U/S without evidence of DVT Continue gabapentin Transaminitis Hepatic steatosis Component congestive hepatopathy LFTs improving with BP control Continue to monitor HLD LDL 203 Start Lipitor Elevated blood glucose 136 on admission A1c pending Tobacco Abuse Cessation advised Nicotine patch as needed DVT prophylaxis: Lovenox Copy Copies To 1: ROEL ELIAS MD, JARIN M MD 01/04/23 1634: History of Present Illness Time Seen by a Provider: 11:00 Results Results/Procedures Imaging: Reviewed Imaging Report Assessment/Plan Admission Diagnosis HTN urgency Admission Status: Observation Assessment and Plan Admitted with hypertensive urgency. Cardiology consulted and assisted with his care. Started on IV Cardene, BP improved. Transitioned to oral antihypertensive regimen. LFTs elevated, reportedly chronic per patient. Echo with moderate concentric hypertrophy. Started on Lipitor for hyperlipidemia. Discharged home in improved condition. Follow up with Dr. Elias in about a week. Recommend tobacco cessation. Diagnosis/Problems Diagnosis/Problems (1) Hypertensive urgency Status: Acute (2) Moderate concentric left ventricular hypertrophy Status: Acute (3) Elevated LFTs Status: Acute (4) HLD (hyperlipidemia) Status: Acute (5) Tobacco abuse Status: Acute (6) Obesity Status: Acute Copy Copies To 1: ROEL ELIAS MD Supervisory-Addendum Brief Verification & Attestation Participated in pt care: history, MDM, physical Personally performed: exam, history, MDM, supervision of care Care discussed with: Medical Student Procedures: n/a Results interpretation: Verified all documentation A medical student performed and documented this service in my presence. I reviewed and verified all information documented by the medical student and made modifications to such information, when appropriate. I personally performed the physical exam and medical decision making. MARY LOU DE LA ROSA January 04, 2023 13:46 VITALIY GAO MD January 04, 2023 16:34
[2023-01-04] MEDS ORDERED: MTP100TCR PO (14:22)
[2023-01-04] MEDS ORDERED: TRIA1TAB5 PO (14:22)
[2023-01-04] MEDS ORDERED: ATOR80TA76 PO (14:22)
[2023-01-04 14:55] VITALS: BP 149/116
--- NOTE | 2023-01-04 15:05 | Progress Note - Cardiology ---
Cardiology SOAP Progress Note Subjective: No cp or palp or syncope or shortness of breath No n/v/d No focal weakness No swelling Objective: I&O/Vital Signs 01/04/23 01/04/23 01/04/23 01/04/23 03:10 03:12 04:00 05:00 Temp 36.6 Pulse 77 86 B/P (MAP) 117/88 (98) 144/103 (117) Pulse Ox 99 99 97 94 O2 Delivery Room Air Room Air Room Air Room Air 01/04/23 01/04/23 01/04/23 01/04/23 06:00 07:00 07:00 08:00 Pulse 84 87 87 82 B/P (MAP) 126/83 (97) 138/96 (110) 130/94 (106) Pulse Ox 95 97 93 O2 Delivery Room Air Room Air Room Air 01/04/23 01/04/23 01/04/23 01/04/23 08:00 08:00 09:00 10:00 Temp 36.2 Pulse 84 75 B/P (MAP) 126/90 (102) 147/106 (120) Pulse Ox 99 96 91 O2 Delivery Room Air Room Air Room Air 01/04/23 01/04/23 01/04/23 01/04/23 11:00 11:50 12:00 12:00 Temp 36.3 Pulse 75 79 B/P (MAP) 136/103 (114) 143/102 (116) Pulse Ox 92 100 95 O2 Delivery Room Air Room Air Room Air 01/04/23 01/04/23 01/04/23 13:00 13:00 14:00 Pulse 73 83 81 B/P (MAP) 134/108 (117) 149/116 (127) Pulse Ox 94 95 O2 Delivery Room Air Room Air 01/04/23 00:00 Intake Total 350 ml Output Total 2325 ml Balance -1975 ml Constitutional: AAO x 3, well-developed, well-nourished Respiratory: No accessory muscle use; chest expansion is symmetric, chest is bilaterally symmetric, other (good, bilateral air entry) Cardiovascular: regular rate-rhythm, S1 and S2, systolic murmur (soft SHERRI at card base) Gastrointestional: No tender; soft; No guarding, No rebound; audible bowel sounds Extremities: No clubbing, No cyanosis, No significant edema Neurologic/Psychiatric: oriented x 3, other (moves all limbs equally) Skin: No rash on exposed areas, No ulcerations on exposed areas Results/Procedures: Labs Laboratory Tests 01/03/23 15:50: White Blood Count 10.3, Red Blood Count 4.06L, Hemoglobin 12.9L, Hematocrit 39L, Mean Corpuscular Volume 97, Mean Corpuscular Hemoglobin 32, Mean Corpuscular Hemoglobin Concent 33, Red Cell Distribution Width 14.3, Platelet Count 364, Mean Platelet Volume 8.9L, Immature Granulocyte % (Auto) 0, Neutrophils (%) (Auto) 73, Lymphocytes (%) (Auto) 18, Monocytes (%) (Auto) 6, Eosinophils (%) (Auto) 2, Basophils (%) (Auto) 1, Neutrophils # (Auto) 7.5, Lymphocytes # (Auto) 1.8, Monocytes # (Auto) 0.6, Eosinophils # (Auto) 0.2, Basophils # (Auto) 0.1, Immature Granulocyte # (Auto) 0.0, Prothrombin Time 12.9, INR Comment 1.0, Activated Partial Thromboplast Time 27, Sodium Level 143, Potassium Level 3.9, Chloride Level 106, Carbon Dioxide Level 18L, Anion Gap 19H, Blood Urea Nitrogen 7, Creatinine 0.82, Estimat Glomerular Filtration Rate 112, BUN/Creatinine Ratio 9, Glucose Level 136H, Calcium Level 9.4, Corrected Calcium 9.1, Magnesium Level 1.6, Total Bilirubin 0.5, Aspartate Amino Transf (AST/SGOT) 181H, Alanine Aminotransferase (ALT/SGPT) 137H, Alkaline Phosphatase 87, Myoglobin 20.3, Troponin I < 0.028, B-Type Natriuretic Peptide < 10.0, Total Protein 8.1, Albumin 4.4, Thyroid Stimulating Hormone (TSH) 3.38 01/03/23 16:32: Urine Color YELLOW, Urine Clarity SL CLOUDY, Urine pH 5.5, Urine Specific [place] >=1.030, Urine Protein TRACEH, Urine Glucose (UA) NEGATIVE, Urine Ketones 1+H, Urine Nitrite NEGATIVE, Urine Bilirubin NEGATIVE, Urine Urobilinogen 0.2, Urine Leukocyte Esterase NEGATIVE, Urine RBC (Auto) NEGATIVE, Urine RBC NONE, Urine WBC NONE, Urine Squamous Epithelial Cells 2-5, Urine Crystals PRESENTH, Urine Amorphous Sediment FEW WILLIAM URATESH, Urine Bacteria TRACE, Urine Casts PRESENT, Urine Hyaline Casts 2-5H, Urine Mucus MODERATEH, Urine Culture Indicated NO, Urine Opiates Screen NEGATIVE, Urine Oxycodone Screen NEGATIVE, Urine Methadone Screen NEGATIVE, Urine Propoxyphene Screen NEGATIVE, Urine Barbiturates Screen NEGATIVE, Ur Tricyclic Antidepressants Screen NEGATIVE, Urine Phencyclidine Screen NEGATIVE, Urine Amphetamines Screen NEGATIVE, Urine Methamphetamines Screen NEGATIVE, Urine Benzodiazepines Screen NEGATIVE, Urine Cocaine Screen NEGATIVE, Urine Cannabinoids Screen NEGATIVE 01/03/23 19:59: 01/04/23 04:19: White Blood Count 10.6, Red Blood Count 3.72L, Hemoglobin 12.0L, Hematocrit 36L, Mean Corpuscular Volume 97, Mean Corpuscular Hemoglobin 32, Mean Corpuscular Hemoglobin Concent 33, Red Cell Distribution Width 14.6H, Platelet Count 366, Mean Platelet Volume 9.5, Immature Granulocyte % (Auto) 0, Neutrophils (%) (Auto) 70, Lymphocytes (%) (Auto) 21, Monocytes (%) (Auto) 7, Eosinophils (%) (Auto) 1, Basophils (%) (Auto) 1, Neutrophils # (Auto) 7.4, Lymphocytes # (Auto) 2.2, Monocytes # (Auto) 0.7, Eosinophils # (Auto) 0.2, Basophils # (Auto) 0.1, Immature Granulocyte # (Auto) 0.0, Sodium Level 141, Potassium Level 3.4L, Chloride Level 101, Carbon Dioxide Level 23, Anion Gap 17H, Blood Urea Nitrogen 10, Creatinine 0.84, Estimat Glomerular Filtration Rate 111, BUN/Creatinine Ratio 12, Glucose Level 108H, Calcium Level 9.1, Corrected Calcium 8.9, Magnes ium Level 1.6, Total Bilirubin 0.7, Aspartate Amino Transf (AST/SGOT) 115H, Alanine Aminotransferase (ALT/SGPT) 114H, Alkaline Phosphatase 72, Total Protein 7.7, Albumin 4.2, Phosphorus Level 5.2H, Triglycerides Level 371H, Cholesterol Level 291H, LDL Cholesterol Direct 203H, VLDL Cholesterol 74H, HDL Cholesterol 41 Laboratory Tests 01/03/23 15:50 01/04/23 04:19 A/P: Assessment: Severe hypertension - improved - Echo on 01/04/23: The cavity size is normal. There is mild to moderate concentric hypertrophy. Systolic function is normal. The estimated ejection fraction is 55-60%. There were no regional wall motion abnormalities identified. Pulmonary arteries: Systolic pressure is in the range of 20 mm Hg to 25 mm Hg. Bilat ankle swelling - improved Cigarette smoker - cessation advised Plan: * IV Cardene has been stopped * Continue Toprol XL 200 mg daily, triam/HCTZ 75/50 daily * Add amlodipine * Advised to quit smoking immediately and completely * Ok for d/c from cardiac standpoint * Outpt f/u advised CHARY ETIENNE MD FACP FACC CCDS January 04, 2023 15:05
[2023-01-05] MEDS ORDERED: amLODIPine 10 MG (NORVASC) TAB PO SCH (09:00)
[2023-01-05] MEDS ORDERED: amLODIPine 5 MG (NORVASC) TAB PO SCH (09:00)
== END 2023-01-04 14:55 | disposition home or self-care (01) | DRG 305 ==
LOC: EDUNIT# 15:18 → ER 15:21 → ICU 19:23
PROVIDERS: ADMIT Internal Medicine; ATTEND Internal Medicine
DX: I16.0 Hypertensive urgency (principal); I67.4 Hypertensive encephalopathy; I10 Essential (primary) hypertension; M79.89 Other specified soft tissue disorders; F17.210 Nicotine dependence, cigarettes, uncomplicated; K76.0 Fatty (change of) liver, not elsewhere classified; G62.9 Polyneuropathy, unspecified; E78.5 Hyperlipidemia, unspecified; E66.9 Obesity, unspecified; Z68.38 Body mass index [BMI] 38.0-38.9, adult
CPT/HCPCS: 36415; 71045; 74177; 80053; 80061; 80306; 81000; 82607; 83036; 83735; 83874; 83880; 84100; 84443; 84484; 85025; 85610; 85730; 87081; 93005; 93041; 93306; 93970

== ENCOUNTER 2023-01-13 05:00 | Emergency (ER) | payer OTHER ==
[~2023-01-13] VITALS: Ht 162 cm; Wt 100.1 kg
[~2023-01-13 05:00] MED LIST: AMLO-251 PO; ATOR80TA76 PO; IBUP-2473 PO; LOSA50TA63 PO; MTP100TCR PO; OMEP20TA56 PO; TRIA1TAB5 PO
[2023-01-13] MEDS ORDERED: KETOROLAC 30 MG/ML VIAL IVP STA (05:40)
--- NOTE | 2023-01-13 05:45 | ED General ---
General Chief Complaint: General Problems/Pain Stated Complaint: PX IN LEGS & FEET Nursing Triage Note: TO ED VIA POV AND SHUFFLE STEPPED TO ROOM 5 WITH C/O BILATERAL LEG PAIN. PT STATES HE WAS DC'D FROM THIS HOSPITAL Sunday01/04/23 AFTER BEING ADMITTED WITH HIGH BP. PT STATES HE HAS HAD LEG PAIN SINCE THAT TIME AND SAW PCP DR. JOSE CRUZ ELIAS LAST SUNDAY AND WAS PRESCRIBED GABAPENTIN WHICH HE STATES IS NOT HELPING. PT STATES HE CANNOT TAKE IBUPROFEN D/T DIURETIC HE IS CURRENTLY TAKING AND WON'T TAKE TYLENOL BECAUSE HE "DOESN'T WANNA ". 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 PT THEN LAUGHS AND STATES, "I'M JUST JOKING AROUND TRYING TO HAVE SOME FUN". Source of Information: Patient, Old Records (SKYLAR RODRIGUEZ DO) History of Present Illness Date Seen by Provider: January 13, 2023 Time Seen by Provider: 05:30 Initial Comments PT ARRIVES VIA POV FROM HOME--MOTHER DROVE HIM HERE C/O BILATERAL FOOT PAIN FOR ABOUT A MONTH PAIN IS TO BOTTOM OF FEET AND ESPECIALLY TO THE TIPS OF HIS TOES STATES "IT FEELS LIKE I'M WALKING ON HOT COALS" STATES "I WOKE UP AND IT FEELS LIKE SOMEONE SMASHED MY TOES WITH A HAMMER" STATES HE HAS SLIGHT BURNING SENSATION TO THE TOPS OF HIS FEET. HE DENIES ANY PAIN IN HIS LEGS DENIES ANY BACK PAIN DENIES LOSS OF BOWEL OR BLADDER FUNCTION DENIES NUMBNESS / TINGLING OR MOTOR DEFICITS. NO SWELLING TO LEGS/FEET NO INJURY TO FEET NO WOUNDS/SORES TO FEET NO NEW SHOES PT DOES NOT WORK AND NO NEW ACTIVITIES HE HAS NOT TAKEN ANYTHING FOR PAIN AT ANY TIME HE WAS ADMITTED HERE 01/03- 01/04/23 FOR UNCONTROLLED HTN, HE WAS HAVING THIS SAME PAIN THEN. WORK UP INCLUDING CT OF ABDOMEN AND PELVIS AND VENOUS DOPPLER /ULTRASOUND OF BOTH LEGS, WHICH WERE UNREMARKABLE. HIS BLOOD PRESSURE IS BETTER, BUT THE PAIN IN HIS FEET HAS NOT IMPROVED. HE FOLLOWED UP WITH HIS PCP, DR. JOSE CRUZ ELIAS, AND WAS PRESCRIBED GABAPENTIN ON 01/09/23 HE DENIES ANY OTHER MEDICAL PROBLEMS BESIDES HTN. HE SMOKES 1 PPD, HE DRINKS AT LEAST 3 DRINKS OF HARD LIQUOR DAILY--STATES HE HAS BEEN DRINKING MORE SINCE THE FOOT PAIN STARTED IN THE LAST MONTH. HE DENIES DRUG USE. PCP: DR JOSE CRUZ ELIAS (SKYLAR RODRIGUEZ DO) Allergies and Home Medications Allergies Coded Allergies: No Known Drug Allergies (Unverified , 01/03/23) Patient Home Medication List Home Medication List Reviewed: Yes (SKYLAR RODRIGUEZ DO) Amlodipine Besylate (Amlodipine Besylate) 10 Mg Tablet, 10 MG PO HS, (Reported) Entered as Reported by: ANNA GAMINO on 01/04/23 1246 Atorvastatin Calcium (Atorvastatin Calcium) 80 Mg Tablet, 80 MG PO HS Prescribed by: VITALIY GAO on 01/04/23 1422 Gabapentin (Gabapentin) 600 Mg Tablet, 600 MG PO Q8H PRN for PAIN Prescribed by: WILEY THURMAN on 01/13/23 1007 Losartan Potassium (Losartan Potassium) 50 Mg Tablet, 50 MG PO DAILY, (Reported) Entered as Reported by: ANNA GAMINO on 01/04/23 1246 Metoprolol Succinate (Metoprolol Succinate) 100 Mg Tab.er.24h, 200 MG PO DAILY Prescribed by: VITALIY GAO on 01/04/23 1422 Omeprazole (Omeprazole) 20 Mg Tablet.dr, 20 MG PO DAILY PRN for HEARTBURN, (Reported) Entered as Reported by: ANNA GAMINO on 01/04/23 1246 Oxycodone HCl (Oxycodone HCl) 5 Mg Tablet, 5 MG PO Q6H PRN for PAIN BREAKTROUGH Prescribed by: WILEY THURMAN on 01/13/23 1008 Triamterene/Hydrochlorothiazid (Triamterene-Hctz 75-50 mg Tab) 75 Mg-50 Mg T ablet, 1 EA PO DAILY Prescribed by: VITALIY GAO on 01/04/23 1422 Review of Systems Review of Systems Constitutional: no symptoms reported Respiratory: no symptoms reported; No short of breath Cardiovascular: no symptoms reported; No chest pain, No edema, No palpitations, No syncope Gastrointestinal: no symptoms reported Genitourinary: no symptoms reported Musculoskeletal: see HPI Skin: no symptoms reported Psychiatric/Neurological: See HPI Hematologic/Lymphatic: No Symptoms Reported Immunological/Allergic: no symptoms reported (SKYLAR RODRIGUEZ DO) Past Bsictff-Lcodkc-Gqtgva Hx Patient Social History Tobacco Use?: Yes Tobacco type used: Cigarettes Smoking Status: Current Everyday Smoker Substance use?: No Alcohol Use?: Yes Alcohol type: Hard Liquor Alcohol Frequency: Daily (SKYLAR RODRIGUEZ DO) Past Medical History Surgeries: Yes Orthopedic Respiratory: No Cardiac: Yes Hypertension Neurological: No Genitourinary: No Gastrointestinal: No Musculoskeletal: No Endocrine: No HEENT: No Cancer: No Psychosocial: No Integumentary: No Blood Disorders: No (SKYLAR RODRIGUEZ DO) Family Medical History Hypertension (MARY RODRIGUEZA Cinthia SOTO) Physical Exam Vital Signs Vital Signs - First Documented 01/13/23 05:20 Temp 36.3 Pulse 110 Resp 18 B/P (MAP) 136/102 (113) Pulse Ox 98 O2 Delivery Room Air (WILEY KNAPP MD) Vital Signs Capillary Refill : Less Than 3 Seconds (SKYLAR RODRIGUEZ DO) Height, Weight, BMI Height: '" Weight: lbs. oz. kg; 38.00 BMI Method: General Appearance: Other (WALKS IN SLOWLY, WITH SMALL SHUFFLES OF FEET--WEARING RUBBER SLIDE-TYPE SANDALS. VERY DRAMATIC--MOANING CONSTANTLY. STRONG ODOR OF ETOH) Respiratory: Normal Breath Sounds Cardiovascular: Regular Rate, Rhythm, No Edema, No JVD, No Murmur, Normal Peripheral Pulses Gastrointestinal: Non Tender, Soft Back: Normal Inspection Extremity: Normal Capillary Refill, Normal Range of Motion, No Calf Tenderness, Other (TRACE EDEMA TO FEET BILATERALLY. FEET ARE PINK AND WARM WITH GOOD AND EQUAL PULSES, WITH BRISK CAPILLARY REFILL. THERE ARE NO WOUNDS/SORES/SKIN BREAKDOWN/RASHES. PT HAS FULL ROM AND SENSATION TO BOTH FEET EQUALLY. ) Neurologic/Psychiatric: Alert, Oriented x3, No Motor/Sensory Deficits, column precaster II- XII Norm as Tested Reflexes: 2+ Knee (R), 2+ Knee (L) Skin: Normal Color, Warm/Dry; No Rash (MARY RODRIGUEZA Cinthia SOTO) Progress/Results/Core Measures Suspected Sepsis SIRS Temperature: Pulse: 110 Respiratory Rate: 18 Laboratory Tests 01/13/23 06:03: White Blood Count 8.3 Blood Pressure 136 /102 Mean: 113 Laboratory Tests 01/13/23 06:03: Creatinine 0.99, Platelet Count 350, Total Bilirubin 0.6 (SKYLAR RODRIGUEZ DO) Results/Orders Lab Results Laboratory Tests Test 01/13/23 06:03 01/13/23 06:08 Range/Units White Blood Count 8.3 4.3-11.0 10^3/uL Red Blood Count 4.21 L 4.30-5.52 10^6/uL Hemoglobin 14.0 13.3-17.7 g/dL Hematocrit 40 40-54 % Mean Corpuscular Volume 96 80-99 fL Mean Corpuscular Hemoglobin 33 25-34 pg Mean Corpuscular Hemoglobin Concent 35 32-36 g/dL Red Cell Distribution Width 14.6 H 10.0-14.5 % Platelet Count 350 130-400 10^3/uL Mean Platelet Volume 9.7 9.0-12.2 fL Immature Granulocyte % (Auto) 0 % Neutrophils (%) (Auto) 67 42-75 % Lymphocytes (%) (Auto) 23 12-44 % Monocytes (%) (Auto) 7 0-12 % Eosinophils (%) (Auto) 2 0-10 % Basophils (%) (Auto) 1 0-10 % Neutrophils # (Auto) 5.6 1.8-7.8 10^3/uL Lymphocytes # (Auto) 1.9 1.0-4.0 10^3/uL Monocytes # (Auto) 0.6 0.0-1.0 10^3/uL Eosinophils # (Auto) 0.1 0.0-0.3 10^3/uL Basophils # (Auto) 0.1 0.0-0.1 10^3/uL Immature Granulocyte # (Auto) 0.0 0.0-0.1 10^3/uL Erythrocyte Sedimentation Rate 33 H 0-15 MM/HR Sodium Level 134 L 135-145 MMOL/L Potassium Level 4.3 3.6-5.0 MMOL/L Chloride Level 98 98-107 MMOL/L Carbon Dioxide Level 16 L 21-32 MMOL/L Anion Gap 20 H 5-14 MMOL/L Blood Urea Nitrogen 19 H 7-18 MG/DL Creatinine 0.99 0.60-1.30 MG/DL Estimat Glomerular Filtration Rate 97 BUN/Creatinine Ratio 19 Glucose Level 131 H 70-105 MG/DL Calcium Level 10.0 8.5-10.1 MG/DL Corrected Calcium 8.5-10.1 MG/DL Magnesium Level 2.1 1.6-2.4 MG/DL Total Bilirubin 0.6 0.1-1.0 MG/DL Aspartate Amino Transf (AST/SGOT) 314 H 5-34 U/L Alanine Aminotransferase (ALT/SGPT) 261 H 0-55 U/L Alkaline Phosphatase 72 40-136 U/L C-Reactive Protein High Sensitivity 2.03 H 0.00-0.50 MG/DL Total Protein 8.7 H 6.4-8.2 GM/DL Albumin 4.9 H 3.2-4.5 GM/DL Free Thyroxine 0.99 0.70-1.48 NG/DL TSH [place] Testing 5.06 H 0.35-4.94 UIU/ML Serum Alcohol 121 H <10 MG/DL Urine Color YELLOW Urine Clarity CLEAR Urine pH 5.5 5-9 Urine Specific [place] <=1.005 1.016-1.022 Urine Protein NEGATIVE NEGATIVE Urine Glucose (UA) NEGATIVE NEGATIVE Urine Ketones NEGATIVE NEGATIVE Urine Nitrite NEGATIVE NEGATIVE Urine Bilirubin NEGATIVE NEGATIVE Urine Urobilinogen 0.2 < = 1.0 MG/DL Urine Leukocyte Esterase NEGATIVE NEGATIVE Urine RBC (Auto) NEGATIVE NEGATIVE Urine RBC NONE /HPF Urine WBC NONE /HPF Urine Squamous Epithelial Cells RARE /HPF Urine Crystals NONE /LPF Urine Bacteria NEGATIVE /HPF Urine Casts NONE /LPF Urine Mucus NEGATIVE /LPF Urine Culture Indicated NO Urine Opiates Screen NEGATIVE NEGATIVE Urine Oxycodone Screen NEGATIVE NEGATIVE Urine Methadone Screen NEGATIVE NEGATIVE Urine Propoxyphene Screen NEGATIVE NEGATIVE Urine Barbiturates Screen NEGATIVE NEGATIVE Ur Tricyclic Antidepressants Screen NEGATIVE NEGATIVE Urine Phencyclidine Screen NEGATIVE NEGATIVE Urine Amphetamines Screen NEGATIVE NEGATIVE Urine Methamphetamines Screen NEGATIVE NEGATIVE Urine Benzodiazepines Screen NEGATIVE NEGATIVE Urine Cocaine Screen NEGATIVE NEGATIVE Urine Cannabinoids Screen NEGATIVE NEGATIVE (WILEY KNAPP MD) My Orders Orders - WILEY KNAPP MD Fentanyl Inj (Sublimaze Injection) (01/13/23 09:00) Gabapentin Capsule/Tablet (Neurontin Cap (01/13/23 09:00) (WILEY KNAPP MD) Medications Given in ED Current Medications Medications Dose Ordered Sig/Ronnell Route Start Time Stop Time Status Last Admin Dose Admin Fentanyl Citrate 50 mcg ONCE ONCE IVP 01/13/23 06:30 01/13/23 06:31 DC 01/13/23 06:51 50 MCG Fentanyl Citrate 50 mcg ONCE ONCE IVP 01/13/23 09:00 01/13/23 09:01 DC 01/13/23 08:52 50 MCG Gabapentin 600 mg ONCE ONCE PO 01/13/23 09:00 01/13/23 09:01 DC 01/13/23 08:52 600 MG (WILEY KNAPP MD) Vital Signs/I&O 01/13/23 05:20 Temp 36.3 Pulse 110 Resp 18 B/P (MAP) 136/102 (113) Pulse Ox 98 O2 Delivery Room Air (WILEY KNAPP MD) Vital Signs/I&O Capillary Refill : Less Than 3 Seconds (SKYLAR RODRIGUEZ DO) Blood Pressure Mean: 113 Progress Note : Progress Note GIVEN TORADOL FOR PAIN --NO RELIEF FENTANYL ORDERED CBC, CMP, THYROID FUNCTION TESTS, DRUG AND ALCOHOL TESTING, UA, THIAMINE, B12 AND FOLATE LEVELS ORDERED. PT'S SYMPTOMS ARE SUSPICIOUS FOR NEUROPATHY--STATES HIS FEET FEEL LIKE THEY ARE ON FIRE, AND HE STATES IT IS JUST THE BOTTOMS OF HIS FEET, AND ESPECIALLY THE TIPS OF HIS TOES. PT IS A SMOKER AND DRINKS ALCOHOL DAILY. PT'S MOTHER IS LATER IN ROOM AND PT IS NOW CRYING UNCONTROLLABLY, STATES DUE TO PAIN. 0700--CARE TURNED OVER TO DR. KNAPP AT SHIFT CHANGE. LAB PENDING. (SKYLAR RODRIGUEZ DO) Departure Impression Primary Impression: Neuropathy of both feet Additional Impression: Elevated transaminase level Disposition: HOME, SELF-CARE Condition: Improved Departure-Patient Inst. Decision time for Depature: 10:01 (WILEY KNAPP MD) Referrals: JOSE CRUZ ELIAS MD (PCP/Family) Primary Care Physician Patient Instructions: Peripheral Neuropathy Add. Discharge Instructions: The pain in your feet is likely caused by neuropathy. The exact cause is uncertain. Some labs are still pending and should be available next week for review with your doctor. Please follow-up with Dr. Elias as soon as possible. Call Sunday morning for an appointment time. Reviewed the pending labs with him at follow-up and discuss following your liver enzymes as well. In the meantime, use gabapentin up to 600 mg every 8 hours as needed. Add oxycodone as prescribed for breakthrough pain. Please be advised both of these medications may cause drowsiness. Use with caution. Avoid taking these 2 medications in close time proximity to each other. Do not drive, operate machinery, or make important decisions while on these medications. Oxycodone may also cause constipation. You may wish to use a stool softener such as Colace while you are on oxycodone. Return to care if you have worsening symptoms despite following these instructions. Please work on tapering down on your alcohol consumption. Avoid abruptly quitting alcohol completely as this may cause dangerous withdrawal symptoms. Please work with Dr. Elias regarding a plan for alcohol cessation and a treatment program if necessary. All discharge instructions reviewed with patient and/or family. Voiced understanding. Scripts Gabapentin (Gabapentin) 600 Mg Tablet 600 MG PO Q8H PRN for PAIN, #30 TAB Prov: WILEY KNAPP MD 01/13/23 Oxycodone HCl (Oxycodone HCl) 5 Mg Tablet 5 MG PO Q6H PRN for PAIN BREAKTROUGH, #12 TAB Prov: WILEY KNAPP MD 01/13/23 Copy Copies To 1: JOSE CRUZ ELIAS MD, LISA K DO January 13, 2023 05:44 WILEY KNAPP MD January 13, 2023 10:06
[2023-01-13 06:13] LABS: BASOPHILS # (AUTO) 0.1 10^3/uL (0.0-0.1); BASOPHILS % (AUTO) 1 % (0-10); EOSINOPHILS # (AUTO) 0.1 10^3/uL (0.0-0.3); EOSINOPHILS % (AUTO) 2 % (0-10); HEMATOCRIT 40 % (40-54); LYMPHOCYTES # (AUTO) 1.9 10^3/uL (1.0-4.0); LYMPHOCYTES % (AUTO) 23 % (12-44); MEAN CORPUSCULAR HEMOGLOBIN 33 pg (25-34); MEAN CORPUSCULAR HGB CONC 35 g/dL (32-36); MEAN CORPUSCULAR VOLUME 96 fL (80-99); MEAN PLATELET VOLUME 9.7 fL (9.0-12.2); MONOCYTES # (AUTO) 0.6 10^3/uL (0.0-1.0); MONOCYTES % (AUTO) 7 % (0-12); NEUTROPHILS # (AUTO) 5.6 10^3/uL (1.8-7.8); NEUTROPHILS % (AUTO) 67 % (42-75); PLATELET COUNT 350 10^3/uL (130-400); WHITE BLOOD COUNT 8.3 10^3/uL (4.3-11.0)
[2023-01-13 06:17] LABS: BILIRUBIN,URINE NEGATIVE (NEGATIVE); CLARITY,URINE CLEAR; COLOR,URINE YELLOW; GLUCOSE, URINE (UA) NEGATIVE (NEGATIVE); KETONES,URINE NEGATIVE (NEGATIVE); LEUKOCYTE ESTERASE ,URINE NEGATIVE (NEGATIVE); NITRITE,URINE NEGATIVE (NEGATIVE); PH,URINE 5.5 (5-9); PROTEIN,URINE NEGATIVE (NEGATIVE)
[2023-01-13] MEDS ORDERED: fentaNYL INJ 100 MCG/2 ML AMP IVP ONE ×2 (06:30→09:00)
[2023-01-13 06:38] LABS: BACTERIA,URINE NEGATIVE /HPF; SQUAMOUS EPITHELIAL CELL,UR RARE /HPF
[2023-01-13 06:52] LABS: AMPHETAMINE SCREEN, URINE NEGATIVE (NEGATIVE); BARBITURATE SCREEN URINE NEGATIVE (NEGATIVE); BENZODIAZEPINES SCREEN URINE NEGATIVE (NEGATIVE); CANNABINOID SCREEN, URINE NEGATIVE (NEGATIVE); COCAINE SCREEN URINE NEGATIVE (NEGATIVE); METHADONE STAT NEGATIVE (NEGATIVE); OPIATE SCREEN URINE NEGATIVE (NEGATIVE); OXYCODONE STAT NEGATIVE (NEGATIVE); PROPOXYPHENE STAT NEGATIVE (NEGATIVE); TRICYCLIC ANTIDEPRESSANTS SCRE NEGATIVE (NEGATIVE)
[2023-01-13 06:52] LABS: ALBUMIN 4.9 GM/DL (3.2-4.5); CHLORIDE 98 MMOL/L (98-107); POTASSIUM 4.3 MMOL/L (3.6-5.0); SODIUM 134 MMOL/L (135-145)
[2023-01-13 06:54] LABS: GLUCOSE 131 MG/DL (70-105); TOTAL PROTEIN 8.7 GM/DL (6.4-8.2)
[2023-01-13 06:55] LABS: CARBON DIOXIDE 16 MMOL/L (21-32)
[2023-01-13 06:56] LABS: BILIRUBIN,TOTAL 0.6 MG/DL (0.1-1.0)
[2023-01-13 06:58] LABS: ALKALINE PHOSPHATASE 72 U/L (40-136); CREATININE SERUM 0.99 MG/DL (0.60-1.30); GFR ESTIMATED 97
[2023-01-13 06:59] LABS: BUN/CREATININE RATIO 19
[2023-01-13 07:01] LABS: ALANINE AMINOTRANSFERASE 261 U/L (0-55); MAGNESIUM 2.1 MG/DL (1.6-2.4)
[2023-01-13 07:22] LABS: TSH (THYROID ANALYZER) 5.06 UIU/ML (0.35-4.94)
[2023-01-13 07:41] LABS: ERYTHROCYTE SEDIMENTATION RATE 33 MM/HR (0-15)
[2023-01-13 08:08] LABS: FREE T4 (FREE THYROXINE) 0.99 NG/DL (0.70-1.48)
[2023-01-13] MEDS ORDERED: GABAPENTIN 300 MG (NEURONTIN) CAP PO ONE (09:00)
[2023-01-13] MEDS ORDERED: OXYC5TAB PO (10:07)
[2023-01-13] MEDS ORDERED: GBPN600T PO (10:07)
[2023-01-13 10:15] VITALS: BP 154/103
== END 2023-01-13 10:15 | disposition home or self-care (01) ==
LOC: EDUNIT# 05:00 → ER 05:03
DX: G62.9 Polyneuropathy, unspecified (principal); R74.01 Elevation of levels of liver transaminase levels; R60.0 Localized edema; F17.210 Nicotine dependence, cigarettes, uncomplicated
CPT/HCPCS: 80053; 80306; 81000; 82607; 82746; 83735; 84425; 84439; 84443; 85025; 85652; 86141; 99284; G0480; 36415; 80320

== ENCOUNTER → 2023-02-22 | Outpatient (CLI) | payer OTHER ==
[~2023-02-22] MED LIST changes: +GBPN600T PO; +OXYC5TAB PO
[2023-02-22 10:05] LABS: CHLORIDE 103 MMOL/L (98-107); POTASSIUM 4.4 MMOL/L (3.6-5.0); SODIUM 136 MMOL/L (135-145)
[2023-02-22 10:07] LABS: CALCIUM 10.8 MG/DL (8.5-10.1)
[2023-02-22 10:08] LABS: GLUCOSE 124 MG/DL (70-105); TOTAL PROTEIN 8.9 GM/DL (6.4-8.2)
[2023-02-22 10:09] LABS: CARBON DIOXIDE 19 MMOL/L (21-32)
[2023-02-22 10:10] LABS: BILIRUBIN,TOTAL 0.5 MG/DL (0.1-1.0)
[2023-02-22 10:11] LABS: ALKALINE PHOSPHATASE 81 U/L (40-136)
[2023-02-22 10:12] LABS: CREATININE SERUM 1.85 MG/DL (0.60-1.30); GFR ESTIMATED 46
[2023-02-22 10:13] LABS: BUN/CREATININE RATIO 18
[2023-02-22 10:14] LABS: ALANINE AMINOTRANSFERASE 102 U/L (0-55)
== END ==
LOC: LAB 09:33
PROVIDERS: ATTEND Physician Assistant
DX: R94.5 Abnormal results of liver function studies (principal)
CPT/HCPCS: 36415; 80053

== ENCOUNTER → 2023-03-06 | Outpatient (CLI) | payer OTHER ==
[2023-03-06 09:01] LABS: ALBUMIN 4.3 GM/DL (3.2-4.5); BILIRUBIN,TOTAL 0.5 MG/DL (0.1-1.0); CREATININE SERUM 1.31 MG/DL (0.60-1.30); POTASSIUM 3.5 MMOL/L (3.6-5.0); TOTAL PROTEIN 7.6 GM/DL (6.4-8.2)
== END ==
LOC: LAB 08:20
PROVIDERS: ATTEND Physician Assistant
DX: E86.0 Dehydration (principal); R79.89 Other specified abnormal findings of blood chemistry
CPT/HCPCS: 36415; 80053

== ENCOUNTER → 2023-03-26 | Outpatient (CLI) | payer OTHER ==
[2023-03-26 10:41] LABS: CALCIUM 9.8 MG/DL (8.5-10.1); CREATININE SERUM 1.23 MG/DL (0.60-1.30); POTASSIUM 3.8 MMOL/L (3.6-5.0)
== END ==
LOC: LAB 10:06
PROVIDERS: ATTEND Internal Medicine Cardiovascular Disease
DX: I10 Essential (primary) hypertension (principal)
CPT/HCPCS: 36415; 80048

== ENCOUNTER → 2023-07-30 | Outpatient (CLI) | payer SELFPAY ==
[2023-07-30 12:05] LABS: BASOPHILS # (AUTO) 0.2 10^3/uL (0.0-0.1); BASOPHILS % (AUTO) 1 % (0-10); EOSINOPHILS # (AUTO) 0.4 10^3/uL (0.0-0.3); EOSINOPHILS % (AUTO) 3 % (0-10); HEMATOCRIT 49 % (40-54); HEMOGLOBIN 16.2 g/dL (13.3-17.7); LYMPHOCYTES # (AUTO) 2.5 10^3/uL (1.0-4.0); LYMPHOCYTES % (AUTO) 19 % (12-44); MEAN CORPUSCULAR HEMOGLOBIN 32 pg (25-34); MEAN CORPUSCULAR HGB CONC 33 g/dL (32-36); MEAN CORPUSCULAR VOLUME 97 fL (80-99); MONOCYTES # (AUTO) 0.8 10^3/uL (0.0-1.0); MONOCYTES % (AUTO) 6 % (0-12); NEUTROPHILS # (AUTO) 9.1 10^3/uL (1.8-7.8); NEUTROPHILS % (AUTO) 70 % (42-75); PLATELET COUNT 501 10^3/uL (130-400)
[2023-07-30 12:26] LABS: ALANINE AMINOTRANSFERASE 127 U/L (0-55); ALBUMIN 4.8 GM/DL (3.2-4.5); ALKALINE PHOSPHATASE 76 U/L (40-136); BILIRUBIN,TOTAL 0.8 MG/DL (0.1-1.0); BUN/CREATININE RATIO 12; CALCIUM 10.5 MG/DL (8.5-10.1); CARBON DIOXIDE 18 MMOL/L (21-32); CHLORIDE 106 MMOL/L (98-107); CREATININE SERUM 2.67 MG/DL (0.60-1.30); GFR ESTIMATED 29; GLUCOSE 102 MG/DL (70-105); SODIUM 138 MMOL/L (135-145); TOTAL PROTEIN 9.1 GM/DL (6.4-8.2)
[2023-07-30 12:29] LABS: ERYTHROCYTE SEDIMENTATION RATE 17 MM/HR (0-15)
[2023-07-30 12:40] LABS: POTASSIUM 5.1 MMOL/L (3.6-5.0)
== END ==
LOC: LAB 11:16
PROVIDERS: ATTEND Physician Assistant
DX: M79.604 Pain in right leg (principal); M79.605 Pain in left leg; E51.11 Dry beriberi; R76.8 Other specified abnormal immunological findings in serum; R79.89 Other specified abnormal findings of blood chemistry; I10 Essential (primary) hypertension; G62.9 Polyneuropathy, unspecified; G47.9 Sleep disorder, unspecified; E78.2 Mixed hyperlipidemia
CPT/HCPCS: 36415; 80053; 84425; 85025; 85610; 85613; 85652; 85705; 85730; 86038; 86039; 86141; 86146; 86147